=== PATIENT | male | born 1995 | race Two or more races ===

== ENCOUNTER 2022-10-12 22:24 | Emergency (ER) | payer SELFPAY ==
[~2022-10-12] VITALS: Ht 180.3 cm; Wt 88.6 kg
[~2022-10-12 22:24] MED LIST: CEPH-582 PO; IBUP-2784 PO; METR500 PO
[2022-10-12] MEDS ORDERED: PERTUSS(ACELL),DIPH,TET VAC/PF 0.5 ML SYRINGE IM. ONE (22:30)
[2022-10-12] MEDS ORDERED: LIDOCAINE 1%/EPI 1:200,000/PF 30 ML VIAL PERC ONE (22:30)
[2022-10-13] MEDS ORDERED: ONDANSETRON HCL 4 MG TABLET ONE (00:04)
[2022-10-13] MEDS ORDERED: ONDANSETRON HCL 4 MG TABLET PO ONE (00:15)
[2022-10-13 00:56] VITALS: BP 135/77
== END 2022-10-13 01:38 | disposition home or self-care (01) ==
LOC: EMS 22:25
DX: S01.01XA Laceration without foreign body of scalp, initial encounter (principal); J45.909 Unspecified asthma, uncomplicated; X58.XXXA Exposure to other specified factors, initial encounter; Y93.89 Activity, other specified; Y92.89 Other specified places as the place of occurrence of the external cause; Y99.8 Other external cause status
CPT/HCPCS: 99285; 70450; 90715; 90471; J3490; Q0162

== ENCOUNTER 2022-10-22 14:27 | Emergency (ER) | payer MEDICAID ==
[~2022-10-22] VITALS: Ht 180.3 cm; Wt 75.0 kg
[2022-10-22 14:37] VITALS: BP 116/70
== END 2022-10-22 15:58 | disposition home or self-care (01) ==
LOC: EMS 14:28
DX: S01.01XD Laceration without foreign body of scalp, subsequent encounter (principal); Z48.02 Encounter for removal of sutures; X58.XXXD Exposure to other specified factors, subsequent encounter
CPT/HCPCS: 99281; Z7502